=== PATIENT | male | born 1970 | race Caucasian/White ===

== ENCOUNTER 2021-11-06 15:57 | Emergency (ER) | payer OTHER, SELFPAY ==
[2021-11-06 16:13] VITALS: BP 134/74; PULSE 72; RESP 16; TEMP 36.9; O2SAT 99
--- NOTE | 2021-11-06 16:19 | ED_ITS ---
HPI - Female Genitourinary General Chief complaint: Urogenital-Male Stated complaint: blood in urine Time Seen by Provider: 11/06/21 16:19 History of Present Illness HPI Narrative: 51-year-old male presents to the [facility] with complaints of bloody urine Related Data Home Medications Medication Instructions Recorded Confirmed amlodipine 5 mg tablet tablet 11/06/21 citalopram 40 mg tablet tablet 11/06/21 hydrocodone 10 mg-acetaminophen tablet 11/06/21 325 mg tablet lisinopril 30 mg tablet tablet 11/06/21 lorazepam 0.5 mg tablet tablet 11/06/21 naloxone 4 mg/actuation nasal spray spray intranasal 11/06/21 needle (disp) 21 G 21 gauge x 1 11/06/21 11/06/2106/10 (BD Regular Bevel [place]) syringe with needle 3 mL 22 x 1 11/06/21 11/06/2106/10 (BD Luer-Wilmer Syringe) testosterone cypionate 200 mg/mL ea 11/06/21 intramuscular oil tizanidine 4 mg tablet tablet 11/06/21 tramadol 50 mg tablet tablet 11/06/21 venlafaxine 37.5 mg cap PO 11/06/21 capsule,extended release 24 hr Allergies Allergy/AdvReac Type Severity Reaction Status Date / Time vancomycin Allergy Intermediate NAUSEA AND Verified 11/06/21 16:04 VOMITING morphine Allergy Mild ITCHING Verified 11/06/21 16:04 Course Vital Signs Vital signs: Vital Signs Temperature 98.4 F 11/06/21 16:13 Pulse Rate 72 11/06/21 16:13 Respiratory Rate 16 11/06/21 16:13 Blood Pressure 134/74 11/06/21 16:13 Pulse Oximetry 99 11/06/21 16:13 Oxygen Delivery Room Air 11/06/21 16:13 Temperature 98.4 F 11/06/21 16:13 Pulse Rate 72 11/06/21 16:13 Respiratory Rate 16 11/06/21 16:13 Blood Pressure 134/74 11/06/21 16:13 Pulse Oximetry 99 11/06/21 16:13 Oxygen Delivery Room Air 11/06/21 16:13 Discharge Plan Discharge Prescriptions: No Action venlafaxine 37.5 mg capsule,extended release 24hr PO citalopram 40 mg tablet tizanidine 4 mg tablet amlodipine 5 mg tablet hydrocodone-acetaminophen 10-325 mg tablet tramadol 50 mg tablet (DME) syringe with needle [BD Luer-Wilmer Syringe] 3 mL 22 x 1 1/2 syringe MISCELLANEOUS lorazepam 0.5 mg tablet (DME) BD Regular Bevel [place] 21 gauge x 1 1/2 needle MISCELLANEOUS lisinopril 30 mg tablet testosterone cypionate 200 mg/mL oil naloxone 4 mg/actuation spray,non-aerosol INTRANASAL Follow-up/Referrals: UNKNOWN,DOCTOR [Primary Care Provider] -
--- NOTE | 2021-11-06 16:25 | ED.MALEGU ---
HPI - Male Genitourinary General Chief complaint: Urogenital-Male Stated complaint: blood in urine Time Seen by Provider: 11/06/21 16:19 Source: patient and RN notes reviewed Mode of arrival: ambulatory Limitations: no limitations History of Present Illness HPI Narrative: 51-year-old male presents to the [facility] with complaints of body aches, chills, feeling feverish, but back pain and urinating blood since last night. States he called his primary who referred him to an ER. Denies abdominal pain or chest pain. Onset (ago): day(s) (1) Related Data Home Medications Medication Instructions Recorded Confirmed amlodipine 5 mg tablet 1 tablet PO DAILY 11/06/21 11/06/21 citalopram 40 mg tablet 1 tablet PO DAILY 11/06/21 11/06/21 hydrocodone 10 mg-acetaminophen 1 tablet PO DIRECTED 11/06/21 11/06/21 325 mg tablet lisinopril 30 mg tablet 1 tablet PO DAILY 11/06/21 11/06/21 lorazepam 0.5 mg tablet 1 tablet PO DIRECTED 11/06/21 11/06/21 naloxone 4 mg/actuation nasal spray 1 spray intranasal DIRECTED 11/06/21 11/06/21 needle (disp) 21 G 21 gauge x 1 11/06/21 11/06/2106/10 (BD Regular Bevel [place]) syringe with needle 3 mL 22 x 1 11/06/21 11/06/2106/10 (BD Luer-Wilmer Syringe) testosterone cypionate 200 mg/mL 1 ea subcut DIRECTED 11/06/21 11/06/21 intramuscular oil tizanidine 4 mg tablet 1 tablet PO DIRECTED 11/06/21 11/06/21 tramadol 50 mg tablet 1 tablet PO DIRECTED 11/06/21 11/06/21 venlafaxine 37.5 mg 1 cap PO DAILY 11/06/21 11/06/21 capsule,extended release 24 hr Allergies Allergy/AdvReac Type Severity Reaction Status Date / Time vancomycin Allergy Intermediate NAUSEA AND Verified 11/06/21 17:06 VOMITING morphine Allergy Mild ITCHING Verified 11/06/21 17:06 Review of Systems Review of Systems: All systems reviewed & are unremarkable except as noted in HPI and below Constitutional: Constitutional: Reports as per HPI, Reports body ache(s), Reports chills and Reports fever(s) Eyes: Eyes: Reports no additional eye complaints ENT: Reports system reviewed and no additional complaints, except as documented Cardiovascular: Cardiovascular: Reports no additional cardiovascular complaints Respiratory: Respiratory: Reports no additional respiratory complaints Gastrointestinal: Gastrointestinal: Reports no additional gastrointestinal complaints Genitourinary: Genitourinary: Reports as per HPI, Reports hematuria and Reports flank pain (Bilateral) Musculoskeletal: Musculoskeletal: Reports no additional musculoskeletal complaints Integumentary/Breasts: Skin/Breast: Reports system reviewed and no additional complaints, except as docu Neurologic: Reports system reviewed and no additional complaints, except as documented Psychiatric: Psychiatric: Reports no additional psychiatric complaints Allergic/Immunologic: Allergic/Immunologic: Reports no additional allergic/immunologic complaints PMFSH Past Medical History Medical History (Updated 11/06/21 @ 16:34 by Camila Olivia APRN) Anxiety and depression Hypertension Low testosterone Social History Social History (Updated 11/06/21 @ 16:30 by Camila Olivia APRN) Gender identity (if verbalized by the patient): Male Comments At the time of my signature, I reviewed and agree with the nursing past medical, surgical, social, and family history. There is no relevant family history pertinent to the patient complaint. Exam Const: General: well developed, alert, awake, acute distress moderate (Pain), ill appearing acutely, tired appearing and uncomfortable Nutritional Appearance: well nourished Orientation/consciousness: patient oriented x3 Limitations: no limitations HENMT: Head: normal to inspection Ears: external ears normal Eyes: Pupils: Equal, round and reactive pupils present Neck: Neck: normal visual inspection, no lymphadenopathy and no meningeal signs Chest: Chest palpation & inspection: normal inspection of the ches
== END 2021-11-06 16:25 | disposition short-term general hospital (02) ==
PROVIDERS: Emergency Provider Nurse Practitioner
DX: R31.9 Hematuria, unspecified (principal); I10 Essential (primary) hypertension; F41.9 Anxiety disorder, unspecified; F32.A Depression, unspecified
CPT/HCPCS: 81003; 99212; G0463

== ENCOUNTER 2021-11-06 16:59 | Emergency (ER) | payer OTHER, SELFPAY ==
--- NOTE | ~2021-11-06 | CT_ITS ---
EXAMINATION: CT abdomen pelvis wo con DATE: 11/06/2021 18:29 INDICATION: Hematuria and flank pain TECHNIQUE: Computed tomography (CT) of the abdomen and pelvis was performed without intravenous contr ast. The dose-length product (DLP) was 1781.43 mGy-cm. Automated exposure control and iterative recon struction technique were employed. COMPARISON: None FINDINGS: The lung bases are clear. The heart size is normal. The gallbladder is surgically absent. T here appear be changes of gastric bypass surgery. The liver, spleen, pancreas, and adrenal glands are normal. A soft tissue mass isodense to the spleen near the splenic hilum is most consistent with a s plenule. The kidneys are unremarkable. No stones are identified in the kidneys, ureters, or bladder. There is no hydronephrosis or hydroureter. No pathologically enlarged abdominal or pelvic lymph nodes are identified. There is no free intraperitoneal gas or evidence of bowel obstruction. The appendix is normal. There is a chronic H-shaped L1 vertebral body. IMPRESSION: 1. No CT correlate for the patient's symptoms. Reviewed, dictated and finalized at location F.
[2021-11-06 17:01] VITALS: BP 166/62; PULSE 84; RESP 18; TEMP 36.3; O2SAT 100
[2021-11-06 17:17] LABS: Basophils Absolute Auto 0.1 K/mm3 (0.0-0.1); Basophils Percent Auto 0.5 % (0.2-1.2); Eosinophils Absolute Auto 0.1 K/mm3 (0-0.3); Eosinophils Percent Auto 0.6 % (0-4.4); Hematocrit 41.6 % (42.0-52.0); Hemoglobin 13.2 g/dL (14.0-18.0); Immature Granulocyte Absolute 0.09 K/mm3 (0.00-0.031); Immature Granulocyte Percent A 0.7 % (0-0.5); Lymphocytes Absolute Auto 0.98 K/mm3 (0.9-3.2); Lymphocytes Percent Auto 7.3 % (18.3-44.2); Mean Corpuscular HGB Conc 31.7 g/dl (32-36); Mean Corpuscular Hemoglobin 24.4 pg (26-34); Mean Platelet Volume 9.4 fl (7.4-10.4); Monocytes Absolute Auto 1.1 K/mm3 (0.1-0.6); Neutrophils Absolute Auto 11.2 K/mm3 (1.3-6.7); Neutrophils Percent Auto 82.9 % (45.5-73.1); Platelet Count Result 211 k/mm3 (150-375); Red Cell Distribution Width 16.3 % (11.5-14.5); White Blood Count 13.5 K/mm3 (4.5-10.0)
[2021-11-06 17:28] LABS: Alanine Aminotransferase 16 U/L (6-50); Albumin Level 3.9 g/dL (3.5-5.1); Alkaline Phosphatase 95 U/L (38-126); Anion Gap 8 mmol/L (8-16); Aspartate Amino Transferase 22 U/L (17-59); Bilirubin,Total 2.2 mg/dL (0.2-1.3); Blood Urea Nitrogen 20 mg/dL (9-20); Calcium 8.4 mg/dL (8.4-10.2); Carbon Dioxide 24 mmol/L (22-30); Chloride 103 mmol/L (98-107); Estimated CRCL calculation 100 ml/min; Estimated Glomerular Filt Rate 58; Glucose 142 mg/dL (65-110); Potassium 3.7 mmol/L (3.4-5.0); Sodium 135 mmol/L (137-145)
[2021-11-06 18:18] LABS: Lactic Acid Reflex 1.2 mmol/L (0.7-2.0)
--- NOTE | 2021-11-06 18:26 | ED.BACK ---
HPI - Back Pain/Injury General Chief Complaint: Back Pain/Injury Stated Complaint: back pain Time Seen by Provider: 11/06/21 17:41 Source: patient Mode of arrival: ambulatory Limitations: no limitations History of Present Illness HPI Narrative: This is a 51-year-old male that presents to the emergency department for hematuria noted over the last couple of days. Patient also reports he has been having fever and myalgias. Reports dry heaves. Reports some dysuria. Denies cough, congestion, sore throat, or vomiting. Related Data Home Medications Medication Instructions Recorded Confirmed amlodipine 5 mg tablet 1 tablet PO DAILY 11/06/21 11/06/21 citalopram 40 mg tablet 1 tablet PO DAILY 11/06/21 11/06/21 hydrocodone 10 mg-acetaminophen 1 tablet PO DIRECTED 11/06/21 11/06/21 325 mg tablet lisinopril 30 mg tablet 1 tablet PO DAILY 11/06/21 11/06/21 lorazepam 0.5 mg tablet 1 tablet PO DIRECTED 11/06/21 11/06/21 naloxone 4 mg/actuation nasal spray 1 spray intranasal DIRECTED 11/06/21 11/06/21 needle (disp) 21 G 21 gauge x 1 11/06/21 11/06/2106/10 (BD Regular Bevel [place]) syringe with needle 3 mL 22 x 1 11/06/21 11/06/2106/10 (BD Luer-Wilmer Syringe) testosterone cypionate 200 mg/mL 1 ea subcut DIRECTED 11/06/21 11/06/21 intramuscular oil tizanidine 4 mg tablet 1 tablet PO DIRECTED 11/06/21 11/06/21 tramadol 50 mg tablet 1 tablet PO DIRECTED 11/06/21 11/06/21 venlafaxine 37.5 mg 1 cap PO DAILY 11/06/21 11/06/21 capsule,extended release 24 hr Allergies Allergy/AdvReac Type Severity Reaction Status Date / Time vancomycin Allergy Intermediate NAUSEA AND Verified 11/06/21 17:06 VOMITING morphine Allergy Mild ITCHING Verified 11/06/21 17:06 Review of Systems Review of Systems: CONSTITUTIONAL: Reports fever ENT: Denies congestion, sore throat CARDIOVASCULAR: Denies chest pain RESPIRATORY: Denies cough GASTROINTESTINAL: Reports abdominal pain, nausea. Denies vomiting, or diarrhea. GENITOURINARY: Reports dysuria and hematuria. MUSCULOSKELETAL: Reports myalgia. All systems reviewed & are unremarkable except as noted in HPI and below PMFSH Past Medical History Medical History (Updated 11/06/21 @ 20:39 by Autumn Soto PA-C) Anxiety and depression Hypertension Low testosterone Social History Social History (Updated 11/06/21 @ 18:28 by Autumn Soto PA-C) Substance use: never Gender identity (if verbalized by the patient): Male Exam Narrative: GENERAL: Well-appearing, well-nourished, and in no acute distress. HEAD: Normocephalic, atraumatic. EYES: EOMI. ENT: Nares clear, no rhinorrhea or epistaxis. Mucous membranes dry. Oropharynx without tonsillar hypertrophy exudate or other lesions. CHEST: Clear to auscultation. No respiratory distress. No wheezes rales or rhonchi HEART: Regular rate and rhythm. No murmur heard. Normal peripheral pulses. ABDOMEN: Soft, nontender, nondistended, normal active bowel sounds. Left sided CVA tenderness EXTREMITIES: Normal range of motion. No edema. SKIN: Warm, dry, no rash. NEURO: No focal deficits. Alert and oriented x3. PSYCH: Normal mood and affect Course Vital Signs Vital signs: Vital Signs Temperature 97.3 F L 11/06/21 17:01 Pulse Rate 84 11/06/21 17:01 Respiratory Rate 18 11/06/21 17:01 Blood Pressure 166/62 H 11/06/21 17:01 Pulse Oximetry 100 11/06/21 17:01 Oxygen Delivery Room Air 11/06/21 17:01 Temperature 97.3 F L 11/06/21 17:01 Pulse Rate 84 11/06/21 17:01 Respiratory Rate 18 11/06/21 17:01 Blood Pressure 166/62 H 11/06/21 17:01 Pulse Oximetry 100 11/06/21 17:01 Oxygen Delivery Room Air 11/06/21 17:01 MDM - Back Pain/Injury MDM Narrative Medical decision making narrative: Presents to the emergency department for hematuria and fevers noted over the last couple of days. He is afebrile and nontoxic-appearing in the ED. His vitals are stable. CBC with mild leukocytosis to 13.5
[2021-11-06 18:41] LABS: Creatine Kinase 192 U/L (55-170); Lipase 17 U/L (23-300)
[2021-11-06] MEDS: SODIUM CHLORIDE 0.9% IV 500 ML 999 ML IV CONT (18:45)
[2021-11-06 18:57] LABS: CRP 33.4 mg/dL (<1.0)
[2021-11-06 19:08] LABS: Appearance Urine Slightly Cloudy (Clear); Bilirubin Urine 1+ (Negative); Blood Urine 1+ (Negative); Color Urine Yellow (Yellow); Glucose Urine UA Negative (Negative); Ketones Urine Trace mg/dL (Negative); Leukocyte Esterase Ur 2+ LEU/UL (Negative); Nitrate Urine Positive (Negative); Protein Urine 2+ mg/dL (Negative); Specific Grav Ur 1.015 (1.001-1.035); Urobilinogen Urine >=8.0 mg/dL (<2.0)
[2021-11-06 19:13] LABS: Bacteria Urine 1+ /hpf; Mucus Urine Rare /lpf; RBC Urine 21-50 /hpf (0-2); Squamous Epithelial Cell Urine Rare /hpf (Few); WBC Urine >75 /hpf
[2021-11-06 19:14] LABS: Add Urine Microscopic? YES
[2021-11-06] MEDS: HYDROcodone/acetaminophen (*CRX) 10-325 MG TABLET 1 TAB PO (19:47)
[2021-11-06 20:24] LABS: Influenza A QL RT-PCR Negative (Negative); Influenza B QL RT-PCR Negative (Negative); SARS-CoV-2 RNA PCR Negative
[2021-11-06 20:50] VITALS: BP 138/72; PULSE 78; RESP 20; O2SAT 99
== END 2021-11-06 20:51 | disposition home or self-care (01) ==
PROVIDERS: Physician Assistant; Emergency Provider Emergency Medicine; PCP Nurse Practitioner Family
DX: N10 Acute pyelonephritis (principal); I10 Essential (primary) hypertension; F41.9 Anxiety disorder, unspecified; F32.9 Major depressive disorder, single episode, unspecified; Z79.891 Long term (current) use of opiate analgesic; Z20.822 Contact with and (suspected) exposure to COVID-19
CPT/HCPCS: 36415; 74176; 80053; 81001; 81003; 82550; 83605; 83690; 85025; 86140; 87077; 87086; 87186; 87502; 96365; 96375; 99284; A9270; C9803; J0131; J0696; J7040; U0003; U0005

== ENCOUNTER 2021-11-10 13:30 | Emergency (ER) | payer OTHER, SELFPAY ==
--- NOTE | ~2021-11-10 | XR_ITS ---
EXAMINATION: XR chest 2V Exam Date/Time: 11/10/2021 15:22 CDT HISTORY: SOB Comparison: 12/22/2004. RESULT: Lines, tubes, and devices: None. Lungs and pleura: Low volumes with crowding, otherwise clear. Cardiomediastinal silhouette: Stable cardiomediastinal silhouette. Other: No acute osseous or upper abdominal finding. IMPRESSION: No acute cardiopulmonary process. Reviewed, dictated and finalized at location K.
[2021-11-10 13:37] VITALS: BP 172/105; PULSE 63; RESP 20; TEMP 36.4; O2SAT 100
[2021-11-10 14:29] LABS: Basophils Percent Auto 0.5 % (0.2-1.2); Eosinophils Absolute Auto 0.1 K/mm3 (0-0.3); Eosinophils Percent Auto 1.2 % (0-4.4); Hematocrit 39.2 % (42.0-52.0); Hemoglobin 12.7 g/dL (14.0-18.0); Immature Granulocyte Absolute 0.11 K/mm3 (0.00-0.031); Immature Granulocyte Percent A 1.5 % (0-0.5); Lymphocytes Absolute Auto 1.35 K/mm3 (0.9-3.2); Lymphocytes Percent Auto 18.2 % (18.3-44.2); Mean Corpuscular HGB Conc 32.4 g/dl (32-36); Mean Corpuscular Hemoglobin 24.3 pg (26-34); Mean Corpuscular Volume 75.1 fl (80-100); Mean Platelet Volume 9.3 fl (7.4-10.4); Monocytes Absolute Auto 0.7 K/mm3 (0.1-0.6); Monocytes Percent Auto 9.2 % (2.6-8.5); Neutrophils Absolute Auto 5.2 K/mm3 (1.3-6.7); Neutrophils Percent Auto 69.4 % (45.5-73.1); Platelet Count Result 294 k/mm3 (150-375); Red Blood Count 5.22 M/mm3 (4.6-6.20); Red Cell Distribution Width 16.3 % (11.5-14.5); White Blood Count 7.4 K/mm3 (4.5-10.0)
[2021-11-10 14:42] LABS: Alanine Aminotransferase 22 U/L (6-50); Albumin Level 3.9 g/dL (3.5-5.1); Alkaline Phosphatase 108 U/L (38-126); Anion Gap 7 mmol/L (8-16); Aspartate Amino Transferase 31 U/L (17-59); Bilirubin,Total 0.6 mg/dL (0.2-1.3); Blood Urea Nitrogen 13 mg/dL (9-20); Calcium 9.1 mg/dL (8.4-10.2); Carbon Dioxide 26 mmol/L (22-30); Chloride 106 mmol/L (98-107); Estimated CRCL calculation 103 ml/min; Estimated Glomerular Filt Rate > 60; Glucose 155 mg/dL (65-110); Potassium 3.6 mmol/L (3.4-5.0); Sodium 139 mmol/L (137-145)
--- NOTE | 2021-11-10 14:57 | ED.FEVER ---
HPI - Fever General Chief Complaint: Fever Stated Complaint: Kidney infection, fever Time Seen by Provider: 11/10/21 14:20 History of Present Illness HPI Narrative: 51-year-old male presenting to the emergency department for evaluation after worsening generalized illness, subjective fever, back pain, generalized weakness. Patient was evaluated few days ago in the emergency department and was diagnosed with a urinary tract infection. Patient has been taking antibiotics since that time. Patient states that his urinary symptoms have improved but patient does complain of some shortness of breath and back pain. Patient states he has been sweating at nighttime and has had restless sleep. The patient's last visit he was tested for influenza and for COVID which tested negative. Patient was started on antibiotics for a UTI. Patient states he has been taking these as directed. Related Data Home Medications Medication Instructions Recorded Confirmed amlodipine 5 mg tablet 1 tablet PO DAILY 11/06/21 11/06/21 citalopram 40 mg tablet 1 tablet PO DAILY 11/06/21 11/06/21 hydrocodone 10 mg-acetaminophen 1 tablet PO DIRECTED 11/06/21 11/06/21 325 mg tablet lisinopril 30 mg tablet 1 tablet PO DAILY 11/06/21 11/06/21 lorazepam 0.5 mg tablet 1 tablet PO DIRECTED 11/06/21 11/06/21 naloxone 4 mg/actuation nasal spray 1 spray intranasal DIRECTED 11/06/21 11/06/21 needle (disp) 21 G 21 gauge x 1 11/06/21 11/06/2106/10 (BD Regular Bevel [place]) syringe with needle 3 mL 22 x 1 11/06/21 11/06/2106/10 (BD Luer-Wilmer Syringe) testosterone cypionate 200 mg/mL 1 ea subcut DIRECTED 11/06/21 11/06/21 intramuscular oil tizanidine 4 mg tablet 1 tablet PO DIRECTED 11/06/21 11/06/21 tramadol 50 mg tablet 1 tablet PO DIRECTED 11/06/21 11/06/21 venlafaxine 37.5 mg 1 cap PO DAILY 11/06/21 11/06/21 capsule,extended release 24 hr Allergies Allergy/AdvReac Type Severity Reaction Status Date / Time vancomycin Allergy Intermediate NAUSEA AND Verified 11/10/21 14:25 VOMITING morphine Allergy Mild ITCHING Verified 11/10/21 14:25 Review of Systems Review of Systems: CONSTITUTIONAL: Increased generalized weakness EYES: Denies visual changes, redness, or discharge. ENT: Denies rhinorrhea, congestion, sore throat, or otalgia. CARDIOVASCULAR: Denies chest pain, palpitations, or edema. RESPIRATORY: Denies cough or dyspnea. GASTROINTESTINAL: Denies abdominal pain, nausea, vomiting, or diarrhea. GENITOURINARY: See HPI SKIN: Denies rash or itching. MUSCULOSKELETAL: Denies back pain, joint pain, or myalgia. NEUROLOGIC: Denies headache, numbness, or weakness. All systems reviewed & are unremarkable except as noted in HPI and below PMFSH Past Medical History Medical History (Updated 11/11/21 @ 11:04 by Johnny Baca MD) Anxiety and depression Hypertension Low testosterone Social History Social History (Updated 11/06/21 @ 18:28 by Autumn Soto PA-C) Substance use: never Gender identity (if verbalized by the patient): Male Exam Narrative: APPEARANCE: Ill-appearing HEAD: normocephalic, atraumatic. EYES: PERRLA/EOMI, conjunctivae clear. NOSE: Normal no drainage RESPIRATORY: Airway patent, respirations nonlabored. Clear to auscultation bilaterally, no rales, rhonchi, wheezing. CARDIOVASCULAR: Regular rate and rhythm without murmurs rubs or gallops. ABDOMINAL: Normal bowel sounds, nontender to palpation. MUSCULOSKELETAL: Moves all extremities. Strength/ROM intact, No edema, No calf tenderness. NEURO: Alert. Cranial nerves II through XII intact. Grossly intact SKIN: Warm, dry. Normal Color Course Reevaluation(s) Reevaluation #1: Patient's vital signs are within normal limits. Patient is afebrile. Patient has no leukocytosis. Patient was once again negative for flu and COVID. Patient's UA does still have evidence of infection but is significantly improved. Patient was updated on the results of his work-up.
[2021-11-10 15:16] LABS: Appearance Urine Clear (Clear); Bilirubin Urine Negative (Negative); Color Urine Yellow (Yellow); Glucose Urine UA Negative (Negative); Ketones Urine Negative (Negative); Leukocyte Esterase Ur Trace LEU/UL (Negative); Nitrate Urine Negative (Negative); Protein Urine 1+ mg/dL (Negative); Specific Grav Ur 1.015 (1.001-1.035); Urobilinogen Urine 0.2 mg/dL (<2.0)
[2021-11-10 15:19] LABS: Add Urine Microscopic? YES; Blood Urine Trace-Intact (Negative)
[2021-11-10 15:24] LABS: Bacteria Urine Trace /hpf; Mucus Urine Rare /lpf; Squamous Epithelial Cell Urine Rare /hpf (Few); WBC Urine 16-20 /hpf
[2021-11-10 15:49] LABS: Influenza A QL RT-PCR Negative (Negative); Influenza B QL RT-PCR Negative (Negative); SARS-CoV-2 RNA PCR Negative
== END 2021-11-10 17:00 | disposition home or self-care (01) ==
PROVIDERS: Emergency Provider Emergency Medicine; PCP Nurse Practitioner Family
DX: N39.0 Urinary tract infection, site not specified (principal); Z20.822 Contact with and (suspected) exposure to COVID-19; F41.9 Anxiety disorder, unspecified; F32.A Depression, unspecified; I10 Essential (primary) hypertension
CPT/HCPCS: 36415; 71046; 80053; 81001; 85025; 87086; 87502; 99283; C9803; U0003; U0005

== ENCOUNTER 2022-06-28 07:30 | Emergency (ER) | payer OTHER, SELFPAY ==
[2022-06-28] VITALS (8 sets, daily range): BP systolic 170–191; BP diastolic 104–120; PULSE 67–88; RESP 15–22; TEMP 36.4; O2SAT 97–98
[2022-06-28 08:10] LABS: Basophils Absolute Auto 0.1 K/mm3 (0.0-0.1); Basophils Percent Auto 0.9 % (0.2-1.2); Eosinophils Absolute Auto 0.1 K/mm3 (0-0.3); Eosinophils Percent Auto 1.7 % (0-4.4); Hematocrit 43.4 % (42.0-52.0); Hemoglobin 14.5 g/dL (14.0-18.0); Immature Granulocyte Absolute 0.05 K/mm3 (0.00-0.031); Immature Granulocyte Percent A 0.6 % (0-0.5); Lymphocytes Absolute Auto 2.57 K/mm3 (0.9-3.2); Lymphocytes Percent Auto 31.3 % (18.3-44.2); Mean Corpuscular HGB Conc 33.4 g/dl (32-36); Mean Corpuscular Hemoglobin 24.8 pg (26-34); Mean Corpuscular Volume 74.3 fl (80-100); Mean Platelet Volume 8.9 fl (7.4-10.4); Monocytes Absolute Auto 0.5 K/mm3 (0.1-0.6); Monocytes Percent Auto 6.1 % (2.6-8.5); Neutrophils Absolute Auto 4.9 K/mm3 (1.3-6.7); Neutrophils Percent Auto 59.4 % (45.5-73.1); Platelet Count Result 326 k/mm3 (150-375); Red Blood Count 5.84 M/mm3 (4.6-6.20); Red Cell Distribution Width 15.8 % (11.5-14.5); White Blood Count 8.2 K/mm3 (4.5-10.0)
[2022-06-28 08:21] LABS: Alanine Aminotransferase 28 U/L (6-50); Albumin Level 4.3 g/dL (3.5-5.1); Alkaline Phosphatase 77 U/L (38-126); Anion Gap 4 mmol/L (8-16); Aspartate Amino Transferase 40 U/L (17-59); Bilirubin,Total 0.5 mg/dL (0.2-1.3); Blood Urea Nitrogen 9 mg/dL (9-20); Calcium 8.7 mg/dL (8.4-10.2); Carbon Dioxide 26 mmol/L (22-30); Chloride 106 mmol/L (98-107); Estimated CRCL calculation 147 ml/min; Estimated Glomerular Filt Rate > 60; Glucose 98 mg/dL (65-110); Potassium 3.7 mmol/L (3.4-5.0); Prothrombin Time 12.6 Seconds (11.1-14.7); Sodium 136 mmol/L (137-145)
[2022-06-28 08:22] LABS: Partial Thromboplastin Time 25.1 SECONDS (22.3-36.8)
--- NOTE | 2022-06-28 08:49 | ED.GIBLEED ---
HPI - GI Bleed General Chief complaint: GI Bleed Stated complaint: BLOOD IN STOOL Time Seen by Provider: 06/28/22 08:17 History of Present Illness HPI Narrative: Patient is a 52-year-old male with a history of gastric bypass presenting with dark stools. Patient states that 10 to 15 years ago he had a bleeding ulcer and had black stool at that time. States that he had low blood counts and had to be admitted. States that he has noticed over the last several days that he has had black stool. States that it has actually improved over the last 2 days, it is now a dark brown. States that he continues to feel unwell with general malaise and headache. States that he has abdominal cramping whenever he has to have a bowel movement. No fevers or chills, numbness or weakness, chest pain, shortness of breath, cough, vomiting, diarrhea, dysuria. No hematochezia or hematemesis. Related Data Home Medications Medication Instructions Recorded Confirmed amlodipine 5 mg tablet 1 tablet PO DAILY 11/06/21 11/06/21 citalopram 40 mg tablet 1 tablet PO DAILY 11/06/21 11/06/21 hydrocodone 10 mg-acetaminophen 1 tablet PO DIRECTED 11/06/21 11/06/21 325 mg tablet lorazepam 0.5 mg tablet 1 tablet PO DIRECTED 11/06/21 11/06/21 needle (disp) 21 G 21 gauge x 1 11/06/21 11/06/2106/10 (BD Regular Bevel [place]) syringe with needle 3 mL 22 x 1 11/06/21 11/06/2106/10 (BD Luer-Wilmer Syringe) tizanidine 4 mg tablet 1 tablet PO DIRECTED 11/06/21 11/06/21 tramadol 50 mg tablet 1 tablet PO DIRECTED 11/06/21 11/06/21 venlafaxine 37.5 mg 1 cap PO DAILY 11/06/21 11/06/21 capsule,extended release 24 hr omeprazole 20 mg capsule,delayed 20 mg PO DAILY 06/28/22 release topiramate 25 mg tablet 25 mg PO DAILY 06/28/22 Allergies Allergy/AdvReac Type Severity Reaction Status Date / Time vancomycin Allergy Intermediate NAUSEA AND Verified 06/28/22 08:02 VOMITING morphine Allergy Mild ITCHING Verified 06/28/22 08:02 KAIA Inhibitors Allergy Unknown Unknown Verified 06/28/22 08:02 methylprednisolone Allergy Unknown Unknown Verified 06/28/22 08:02 Review of Systems Review of Systems: All systems reviewed & are unremarkable except as noted in HPI and below PMFSH Past Medical History Medical History Anxiety and depression Hypertension Low testosterone Family History Family History Father Hypertension Social History Social History Smoking status: Former smoker Alcohol intake: current Substance use: never Living arrangements: with family Gender identity (if verbalized by the patient): Male Exam Narrative: GENERAL: Well-appearing, well-nourished, and in no acute distress. HEAD: Normocephalic, atraumatic. EYES: PERRLA and EOMI. ENT: Nares clear, no rhinorrhea or epistaxis. Mucous membranes moist. NECK: Supple. CHEST: Clear to auscultation. No respiratory distress. HEART: Regular rate and rhythm. No murmur heard. Normal peripheral pulses. ABDOMEN: Soft, nontender, nondistended, normal active bowel sounds. EXTREMITIES: Normal range of motion. No edema. SKIN: Warm, dry, no rash. NEURO: No focal deficits. Alert and oriented x3. PSYCH: Normal mood and affect. Course Vital Signs Vital signs: Vital Signs Temperature 97.5 F L 06/28/22 07:36 Pulse Rate 86 06/28/22 07:36 Respiratory Rate 20 06/28/22 07:36 Blood Pressure 191/116 H 06/28/22 07:36 Pulse Oximetry 97 06/28/22 07:36 Oxygen Delivery Room Air 06/28/22 07:36 Temperature 97.5 F L 06/28/22 07:36 Pulse Rate 71 06/28/22 10:02 Respiratory Rate 22 H 06/28/22 10:02 Blood Pressure 180/108 H 06/28/22 10:02 Pulse Oximetry 97 06/28/22 10:02 Oxygen Delivery Room Air 06/28/22 07:36 MDM - GI Bleed MDM Narrative Medical decision making narrative: Patient is a 52
[2022-06-28 08:58] LABS: Appearance Urine Clear (Clear); Bilirubin Urine Negative (Negative); Blood Urine Negative (Negative); Color Urine Yellow (Yellow); Glucose Urine UA Negative (Negative); Ketones Urine Negative (Negative); Leukocyte Esterase Ur Negative LEU/UL (Negative); Nitrate Urine Negative (Negative); Protein Urine Negative (Negative); Specific Grav Ur 1.015 (1.001-1.035); Urobilinogen Urine 0.2 mg/dL (<2.0)
[2022-06-28 08:59] LABS: Add Urine Microscopic? NO
[2022-06-28] MEDS: SODIUM CHLORIDE 0.9% IV 1,000 ML 999 ML IV CONT (09:10)
[2022-06-28] MEDS: ONDANSETRON INJ 4 MG/2 ML VIAL IV PUSH (09:11)
[2022-06-28] MEDS: FAMOTIDINE 20 MG/2 ML VIAL IV PUSH (09:26)
== END 2022-06-28 11:02 | disposition home or self-care (01) ==
PROVIDERS: Emergency Provider Emergency Medicine; PCP Nurse Practitioner Family
DX: K92.1 Melena (principal); I10 Essential (primary) hypertension; Z87.891 Personal history of nicotine dependence
CPT/HCPCS: 36415; 80053; 81003; 85025; 85610; 85730; 86850; 86900; 86901; 96365; 96375; 99284; J0131; J2405; J7030